=== PATIENT | female | born 1950 | race Caucasian/White ===

== ENCOUNTER 2025-11-12 09:44 | Outpatient (AMB) | payer MEDICARE, OTHER, SELFPAY ==
--- NOTE | 2025-11-12 09:53 | AM.OFFVISMDC ---
Intake Vital Signs 11/12/25 09:55 Height 5 ft 3 in Weight 135 lb 4 oz BMI 24.0 BP 140/80 H Blood Pressure Location Lt brachial Position Sitting Respiration 16 Pulse 78 Pulse Source Pulse Oximeter Temp 96.8 F Temp Source Temporal Artery Scan Pulse Oximetry (%) 95 Oxygen Delivery Method Room Air Intake Visit Reasons: Annual [facility] pt, medicare wellness visit, reestablish care [employer] Required: No Accompanied by: Self / Same As Patient Allergies azithromycin Allergy (Severe, Verified 11/12/25 10:00) Anaphylaxis latex Allergy (Severe, Verified 11/12/25 10:00) swelling, rash, sometimes anaphylaxis levofloxacin (From Levaquin) Allergy (Severe, Verified 11/12/25 10:00) Anaphylaxis Penicillins Allergy (Severe, Verified 11/12/25 10:00) Anaphylaxis Sulfa (Sulfonamide Antibiotics) Allergy (Severe, Verified 11/12/25 10:00) Anaphylaxis Iodinated Contrast Media (IV Contrast Dye) Adverse Reaction (Intermediate, Verified 11/12/25 10:00) kidney issues steroids Adverse Reaction (Severe, Uncoded 11/12/25 10:00) increased BP, severe anger Medication List - Last Reconciled 11/12/25 by Rubina Lockett MD amlodipine 7.5 - 10 mg PO DAILY epinephrine IM famotidine 40 mg PO DAILY irbesartan 300 mg PO DAILY lactulose 15 mL PO DAILY PRN Tobacco/Smoking Status Tobacco use date assessed: 11/12/25 Patient Tobacco Use Status: Never used Tobacco e-Cigarette/Vaping Use: Never Used Fall Risk Assessment Fall risk assessment: No Falls in past year Date Fall Risk Assessed: 11/12/25 HPI HPI Comments History of Present Illness Details The patient is a 75 year old female presenting to [facility] and for a wellness visit. Health Risk Assessment Completed. No opioid use. Able to do clock draw. No cognitive deficits. Presyncope: In June, the patient experienced an episode where everything went black and she felt herself falling, though she did not lose consciousness. This was followed by tingling in her hands and feet and an inability to walk, with a sensation of her legs being squeezed tightly. She was taken to the ER multiple times and was eventually admitted. Also had a teleneurology consultation. Initial hospital workup showed B12 toxicity, but this was later found to be within the normal range. She underwent MRI and CT scans with contrast. MRA showing left vertebral artery stenosis. The patient reports she is still not 100% and experiences dizzy spells. An outpatient neurologist, at [facility] with initial concern for seizure and plan for EEG. She also saw Dr. Worthy, who attributed her inability to perform a tandem gait to a psychosomatic cause. Hypertension: The patient has a history of uncontrolled hypertension despite being on medication. Her systolic blood pressure readings from October 28 to November 11 have fluctuated from the 130s to the 160s, with diastolic readings in the 80s to 90s. Recently, she experienced chest pain described as a rollover sensation, with a blood pressure of 162/90 mmHg, which prompted her to take an extra dose of amlodipine. Constipation: Following her hospitalization, the patient developed severe constipation, described as feeling like stone, which required an ER visit. She has been managing this with enemas, MiraLax, pre-probiotics, increased water intake, and lactulose, though she is hesitant with the latter due to its potency. 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 The patient notes that she did not see vascular for follow up. Specialist and Preventative Care: The patient follows with [facility] cardiac surgery(Dr. Matta) for an aortic aneurysm and has maintained her annual follow-up She sees Dr. Barboza for general cardiology and is due in May. For sleep apnea, she sees Dr. Herring and has an appointment in July. She has a [facility] Gastroenterology appointment for an endoscopy with potential dilation in December for dysphagia. Her unhairer is Dr. Das, with her next appointment in January. Her medical receptionist medical assistant is Dr. Padilla. Social History: - Housing: She now lives in her own place in [place] next to a friend. - Substance use: No alcohol or tobacco use discussed. - Functional Status: Reports difficulty walking and is not back to her baseline; she does not like to go far. Family History Updates: - Granddaughter was recently diagnosed with lupus. [facility] Medical History (Updated 11/12/25 @ 17:45 by Rubina Lockett MD) Routine medical exam Palpitations Pre-syncope Dizziness Vitamin B12 deficiency (dietary) anemia Schatzki's ring Vertebral artery stenosis LOU (obstructive sleep apnea) Solitary kidney, acquired GERD (gastroesophageal reflux disease) Primary hypertension Surgical History (Updated 11/10/25 @ 11:01 by Teagan Baeza) History of colonoscopy (~03/28/21) Social History Patient Tobacco Use Status: Never used Tobacco e-Cigarette/Vaping Use: Never Used Questionnaire Medicare Wellness Checkup [age] What gender do you identify with?: female During the past 4 weeks, how much have you been bothered by emotional problems such as feeling anxious, depressed, irritable, sad or downhearted, and blue?: not at all During the past 4 weeks, has your physical & emotional health limited your social activities with family, friends, neighbors, or groups?: not at all During the past 4 weeks, how much bodily pain have you generally had?: very mild pain During the past 4 weeks, was someone available to help you if you needed & wanted help?: yes, as much as I wanted Can you get to places out of walking distance without help? (For eg., can you travel alone on buses, taxis or drive your car?): Yes Can you go shopping for groceries or clothes without someone's help?: Yes Can you prepare your own meals?: Yes Can you do your housework without help?: Yes Because of any health problems, do you need the help of another person with your personal care needs such as eating, bathing, dressing or getting around the house?: No Can you handle your own money without help?: Yes During the past 4 weeks, how would you rate your health in general?: good During the past 4 weeks how have things been going for you?: pretty well Are you having difficulties driving your car?: no Do you always fasten your seat belt when you are in a car?: yes, usually During past 4 weeks, have you been bothered by the following: never: Sexual problems?, Trouble eating well?, Teeth or denture problems? and Problems using the telephone? Have you fallen 2 or more times in the past year?: No Are you afraid of falling?: No Are you a smoker?: no During the past 4 weeks, how many drinks of wine, beer, or other alcoholic beverages did you have?: no alcohol at all Do you exercise for about 20 minutes 3 or more times a week?: yes, some of the time Have you been given information to help with the following?: no: Hazards in your house that might hurt you? and no: Keeping track of your medications? How often do you have trouble taking medicines the way you have been told to take them?: I always take medicine as prescribed How confident are you that you can control & manage most of your health problems?: very confident What is your race?: White PHQ-9 Over the last 2 weeks, how often have you been bothered by any of the following problems? 1. Little interest or pleasure in doing things: not at all 2. Feeling down, depressed, or hopeless: not at all 3. Trouble falling or staying asleep, or sleeping too much: not at all 4. Feeling tired or having little energy: not at all 5. Poor appetite or overeating: not at all 6. Feeling bad about yourself - or that you are a failure or have let yourself or your family down: not at all 7. Trouble concentrating on things, such as reading the newspaper or watching television: not at all 8. Moving or speaking so slowly that other people could have noticed. Or the opposite - being so fidgety or restless that you have been moving around a lot more than usual: not at all 9. Thoughts that you would be better off or of hurting yourself in some way: not at all Total score: 0 Depression Screening Interpretation: Negative Depression Screening Done: Yes 35509 - PHQ-9 Billing: Yes Source: Developed by Drs. Jarad Tamayo, Kimberly Church, Andrea Nunez and colleagues, with an educational toan from [employer]. Thrive Questionnaire Date Thrive assessed: 11/12/25 I am a: Patient What is your living situation today?: I have a steady place to live Within the past 12 months, did the food you bought not last and you didn't have the money to get more?: I choose not to answer this question Within the past 12 months, did you worry whether your food would run out before you got money to buy more?: I choose not to answer this question Do you have trouble paying for medicines?: No Do you have trouble getting transportation to medical appointments?: No Do you have trouble paying your heating and electricity bill?: I choose not to answer this question Do you have trouble taking care of your child, family member or friend?: I choose not to answer this question Do you have trouble with day-to-day activities such as bathing, preparing meals, shopping, managing finances, etc.?: No Are you currently unemployed and looking for a job?: I choose not to answer this question Are you interested in more education?: I choose not to answer this question Please select the resources that you would like help with: None Currently or been in a relationship where the following occur: No concerns reported THRIVE Score: 0 EMILI-7 AMB Questionnaire EMILI-7 Date EMILI - 7 assessed: 11/12/25 Feeling nervous, anxious, or on edge: 0 = Not at all Not being able to stop or control worryin = Not at all Worrying too much about different things: 0 = Not at all Trouble relaxin = Not at all Being so restless that it is hard to sit still: 0 = Not at all Becoming easily annoyed or irritable: 0 = Not at all Feeling afraid as if something awful might happen: 0 = Not at all Total EMILI-7 score (0-4 normal; 5-9 mild; 10-14 moderate; 15-21 severe): 0 Source: Developed by Drs. Jarad Tamayo, Kimberly Church, Andrea Nunez and colleagues, with an educational toan from [employer]. AUDIT C Alcohol Use Questionnaire (AUDIT-C) 1. How often do you have a drink containing alcohol?: Never 3. How often do you have six or more drinks on one occasion?: Never Total Score: 0 Review of Systems Narrative Review of Systems - Cardiovascular: per hpi - Gastrointestinal: Reports ongoing issues with constipation. Reports dysphagia, which has improved slightly. Denies nausea or vomiting. - Neurological: Reports episodes of near-syncope, dizziness, and paresthesias in hands and feet. Denies seizure activity. - Musculoskeletal: Reports intermittent difficulty walking and gait instability. Denies joint pain. - Psychological: Denies feelings of depression or anxiety; screening scores were 0 for both. Physical Exam Exam Exam: Physical Exam - HEENT: Bilateral ears are clear. - Oropharynx is clear. - Neck: Soft bruits in both carotid arteries - Lungs: Clear to auscultation bilaterally, no wheezing noted. - Cardiovascular: Regular rate and rhythm. A soft heart murmur is audible. - Abdomen: Soft, non-distended, with normal bowel sounds - Extremities: No edema in bilateral lower extremities. - Cognitive: Passed clock draw test. Vital Signs: Last Vital Signs Temp 96.8 F 11/12/25 09:55 Pulse 78 11/12/25 09:55 Resp 16 11/12/25 09:55 BP 140/80 H 11/12/25 09:55 Pulse Ox 95 11/12/25 09:55 Oxygen Delivery Method Room Air 11/12/25 09:55 BMI result Body Mass Index 24.0 Assessment & Plan Assessment & Plan (1) Routine medical exam: Code(s): Z00.00 - Encounter for general adult medical examination without abnormal findings (2) Primary hypertension: Code(s): I10 - Essential (primary) hypertension (3) Palpitations: Code(s): R00.2 - Palpitations (4) Vertebral artery stenosis: Code(s): I65.09 - Occlusion and stenosis of unspecified vertebral artery Qualifiers: Laterality: unspecified laterality Qualified Code(s): I65.09 - Occlusion and stenosis of unspecified vertebral artery (5) LOU (obstructive sleep apnea): Code(s): G47.33 - Obstructive sleep apnea (adult) (pediatric) (6) Dizziness: Code(s): R42 - Dizziness and giddiness (7) Pre-syncope: Code(s): R55 - Syncope and collapse Plan Assessment and Plan 1. Presyncope and Neurological Symptoms - The patient's presentation with near-syncope, paresthesias, and ataxia is likely multifactorial. - Given the presyncope and intermittent fluttering sensations, a cardiac arrhythmia must be ruled out. - Will order a rheumatology panel - Will also order a full vitamin panel including B12 - A referral will be sent to Dr. Barboza's office for a 48-hour Holter monitor to rule out arrhythmia. - Will refer to vascular 2. Hypertension - The patient's blood pressure remains uncontrolled, with systolic readings reaching the 160s. - She has been taking extra doses of amlodipine for acute elevations. - The plan includes continued home blood pressure monitoring. - The Holter monitor will also help assess for any arrhythmias contributing to her symptoms 3. LOU/Aortic aneurysm - continue follow up with specialists 4. Coordination of Care and Health Maintenance - A follow-up visit is scheduled in three months for a sooner check-in. Plan - Labs: Will order anemia labs, vitamin labs (including B12, vitamin D, and thiamine), thyroid function tests, and a rheumatology panel. Will also check a urine for protein. - Imaging/Diagnostics: Will request a 48-hour Holter monitor from Dr. Barboza's cardiology office to rule out arrhythmia as a cause for her presyncope and dizziness. - Follow-up: The patient will schedule a follow-up appointment in approximately three months Discussion Notes Patient Instructions - Please go to the lab to have your blood drawn today. We have ordered several tests to check your blood counts, vitamin levels, thyroid - We are sending a referral to your heart doctor, Dr. Barboza, for a Holter monitor. This is a portable device you will wear for 48 hours to track your heart's rhythm. Please call their office next Saturday to follow up on this referral. - Continue with the exercises your physical therapist showed you to help strengthen your back muscles. Orders: Orders Lipid Panel Today D51.8 - Other vitamin B12 deficiency anemias, I10 - Essential (primary) hypertension, I65.09 - Occlusion and stenosis of unspecified vertebral artery, K21.9 - Gastro-esophageal reflux disease without esophagitis, R42 - Dizziness and giddiness, Z90.5 - Acquired absence of kidney Sm Sm/GUARD SERGEANT Antibodies Today D51.8 - Other vitamin B12 deficiency anemias, I10 - Essential (primary) hypertension, I65.09 - Occlusion and stenosis of unspecified vertebral artery, K21.9 - Gastro-esophageal reflux disease without esophagitis, R42 - Dizziness and giddiness, Z90.5 - Acquired absence of kidney Microalbumin, Random (w Creat) Today D51.8 - Other vitamin B12 deficiency anemias, I10 - Essential (primary) hypertension, I65.09 - Occlusion and stenosis of unspecified vertebral artery, K21.9 - Gastro-esophageal reflux disease without esophagitis, R42 - Dizziness and giddiness, Z90.5 - Acquired absence of kidney SOFYA Reflex Titer and Pattern Today D51.8 - Other vitamin B12 deficiency anemias, I10 - Essential (primary) hypertension, I65.09 - Occlusion and stenosis of unspecified vertebral artery, K21.9 - Gastro-esophageal reflux disease without esophagitis, R42 - Dizziness and giddiness, Z90.5 - Acquired absence of kidney ECG holter monitor 48 hour Today R00.2 - Palpitations, R55 - Syncope and collapse Comprehensive Met. Panel Today D51.8 - Other vitamin B12 deficiency anemias, I10 - Essential (primary) hypertension, I65.09 - Occlusion and stenosis of unspecified vertebral artery, K21.9 - Gastro-esophageal reflux disease without esophagitis, R42 - Dizziness and giddiness, Z90.5 - Acquired absence of kidney Complete Blood Count Auto Diff Today D51.8 - Other vitamin B12 deficiency anemias, I10 - Essential (primary) hypertension, I65.09 - Occlusion and stenosis of unspecified vertebral artery, K21.9 - Gastro-esophageal reflux disease without esophagitis, R42 - Dizziness and giddiness, Z90.5 - Acquired absence of kidney TSH reflex Free T4 Today D51.8 - Other vitamin B12 deficiency anemias, I10 - Essential (primary) hypertension, I65.09 - Occlusion and stenosis of unspecified vertebral artery, K21.9 - Gastro-esophageal reflux disease without esophagitis, R42 - Dizziness and giddiness, Z90.5 - Acquired absence of kidney Hemoglobin A1c Today D51.8 - Other vitamin B12 deficiency anemias, I10 - Essential (primary) hypertension, I65.09 - Occlusion and stenosis of unspecified vertebral artery, K21.9 - Gastro-esophageal reflux disease without esophagitis, R42 - Dizziness and giddiness, Z90.5 - Acquired absence of kidney Vitamin B1 Today D51.8 - Other vitamin B12 deficiency anemias, I10 - Essential (primary) hypertension, I65.09 - Occlusion and stenosis of unspecified vertebral artery, K21.9 - Gastro-esophageal reflux disease without esophagitis, R42 - Dizziness and giddiness, Z90.5 - Acquired absence of kidney Vitamin B12 Today D51.8 - Other vitamin B12 deficiency anemias, I10 - Essential (primary) hypertension, I65.09 - Occlusion and stenosis of unspecified vertebral artery, K21.9 - Gastro-esophageal reflux disease without esophagitis, R42 - Dizziness and giddiness, Z90.5 - Acquired absence of kidney Vitamin D 25-OH Total Today D51.8 - Other vitamin B12 deficiency anemias, I10 - Essential (primary) hypertension, I65.09 - Occlusion and stenosis of unspecified vertebral artery, K21.9 - Gastro-esophageal reflux disease without esophagitis, R42 - Dizziness and giddiness, Z90.5 - Acquired absence of kidney Magnesium Today D51.8 - Other vitamin B12 deficiency anemias, I10 - Essential (primary) hypertension, I65.09 - Occlusion and stenosis of unspecified vertebral artery, K21.9 - Gastro-esophageal reflux disease without esophagitis, R42 - Dizziness and giddiness, Z90.5 - Acquired absence of kidney Anti DNA DS Antibody Today D51.8 - Other vitamin B12 deficiency anemias, I10 - Essential (primary) hypertension, I65.09 - Occlusion and stenosis of unspecified vertebral artery, K21.9 - Gastro-esophageal reflux disease without esophagitis, R42 - Dizziness and giddiness, Z90.5 - Acquired absence of kidney Referrals Vascular Surgery Referral I65.09 - Occlusion and stenosis of unspecified vertebral artery, R55 - Syncope and collapse Medications: New amlodipine 7.5 - 10 mg (3 - 4 x 2.5 mg) PO DAILY 270 tabs 3RF Quality Reporting (2019) Fall Risk Screening ([facility] 139) Last assessed Fall Risk: 12 Fall risk assessment: No Falls in past year Depression/Bipolar (159/160/161/177) PHQ-9: Total score: 0 Coding Level of Care Code Medicare Subsequent (G0439) Est Pt Level 4 (18939) Diagnoses Routine medical exam Z00.00 Primary hypertension I10 Palpitations R00.2 Vertebral artery stenosis, unspecified laterality I65.09 Laterality: unspecified laterality LOU (obstructive sleep apnea) G47.33 Dizziness R42 Pre-syncope R55 Additional Codes PHQ-9 - 36207 - PHQ-9 Billing: Yes ([id number]) Comment add mod 25 and g2211 codes
[2025-11-12 09:55] VITALS: BP 140/80; PULSE 78; RESP 16; TEMP 36; O2SAT 95; BMI 24.0
== END 2025-11-12 11:19 | disposition home or self-care (01) ==
LOC: HO.HMCHD 09:44
PROVIDERS: PCP Internal Medicine; Visit Provider Internal Medicine
DX: Z00.00 Encounter for general adult medical examination without abnormal findings (principal); I10 Essential (primary) hypertension; R00.2 Palpitations; I65.09 Occlusion and stenosis of unspecified vertebral artery; G47.33 Obstructive sleep apnea (adult) (pediatric); R42 Dizziness and giddiness; R55 Syncope and collapse

== ENCOUNTER 2025-11-12 09:44 | Outpatient (REF) | payer MEDICARE, OTHER, SELFPAY ==
[2025-11-12 13:54] LABS: MANUAL DIFF FLAG NO
[2025-11-12 14:01] LABS: Hematocrit 39.5 % (37.0-47.0); Hemoglobin 13.2 g/dl (12.0-16.0); Imm Gran Abs Auto 0.02 X10*3/uL (0.00-0.03); Imm Gran Pct Auto 0.3 % (0.0-0.4); Lymphocytes Absolute Auto 1.0 X10*3/uL (1.2-4.9); Mean Corpuscular HGB Conc 33.4 g/dl (31.0-35.0); Mean Corpuscular Hemoglobin 31.3 pg (27.0-33.0); Mean Corpuscular Volume 93.6 fL (80.0-98.0); NRBC Abs Auto 0.000 X10*3/uL (0.0-0.012); NRBC Pct Auto 0.0 /100WBC (0.0-0.2); Platelet Count 251 X10*3/uL (160-400); Red Blood Count 4.22 X10*6/uL (4.20-5.50); White Blood Count 5.7 X10*3/uL (4.8-10.8)
[2025-11-12 14:45] LABS: Alanine Aminotransferase 16 U/L (0-31); Albumin Level 4.8 g/dL (3.5-5.0); Alkaline Phosphatase 97 U/L (39-117); Anion Gap 13 (12-20); Aspartate Amino Transferase 29 U/L (5-31); Blood Urea Nitrogen 19 mg/dL (9-16); Calcium 9.5 mg/dL (8.4-10.2); Carbon Dioxide 26 mmol/L (22-29); Chloride 107 mmol/L (96-108); Cholesterol 262 mg/dL (<200); Estimated Glomerular Filt Rate 36; HDL Cholesterol 78 mg/dL (>40); Magnesium 2.3 mg/dL (1.6-2.6); Potassium 3.9 mmol/L (3.3-5.1); Sodium 142 mmol/L (135-145); Total Protein 7.1 g/dL (6.5-8.0); Triglycerides 104 mg/dL (<150)
[2025-11-12 15:01] LABS: Microalbum/Creatinine Ratio Ur 15.2 ug/mg cr (<30)
[2025-11-12 15:07] LABS: Vitamin B12 439 pg/mL (200-900)
[2025-11-15 21:38] LABS: SM/Ribonucleoprotein Ab <1.0 NEG AI (<1.0 NEG); Smith Protein <1.0 NEG AI (<1.0 NEG)
== END 2025-11-12 09:45 | disposition home or self-care (01) ==
LOC: HO.HMGCLDS 09:44
PROVIDERS: PCP Internal Medicine; Visit Provider Internal Medicine
DX: Z00.00 Encounter for general adult medical examination without abnormal findings (principal); I10 Essential (primary) hypertension; K21.9 Gastro-esophageal reflux disease without esophagitis; I65.09 Occlusion and stenosis of unspecified vertebral artery; G47.33 Obstructive sleep apnea (adult) (pediatric); D51.8 Other vitamin B12 deficiency anemias; R42 Dizziness and giddiness; Z90.5 Acquired absence of kidney; Z13.1 Encounter for screening for diabetes mellitus; Z13.29 Encounter for screening for other suspected endocrine disorder; R55 Syncope and collapse; R00.2 Palpitations; Z01.84 Encounter for antibody response examination; Z79.899 Other long term (current) drug therapy
CPT/HCPCS: 36415; 80053; 80061; 82043; 82306; 82570; 82607; 83036; 83735; 84425; 84443; 85025; 86038; 86225; 86235